=== PATIENT | female | born 1930 | race Hispanic/Latino ===

== ENCOUNTER → 2017-12-06 | Outpatient (CLI) | payer OTHER, MEDICARE | END | disposition home or self-care (01) | LOC: OIH 09:19 | PROVIDERS: ATTEND Internal Medicine | DX: S14.109A Unspecified injury at unspecified level of cervical spinal cord, initial encounter (principal); S59.901A Unspecified injury of right elbow, initial encounter; S49.91XA Unspecified injury of right shoulder and upper arm, initial encounter; M47.892 Other spondylosis, cervical region; M19.021 Primary osteoarthritis, right elbow; M85.89 Other specified disorders of bone density and structure, multiple sites; M19.011 Primary osteoarthritis, right shoulder; M19.041 Primary osteoarthritis, right hand; Z91.81 History of falling; X58.XXXA Exposure to other specified factors, initial encounter; Y93.89 Activity, other specified; Y92.89 Other specified places as the place of occurrence of the external cause; Y99.8 Other external cause status | CPT/HCPCS: 72050; 73030; 73070; 73120 ==